=== PATIENT | female | born 1965 | race Caucasian/White ===

== ENCOUNTER 2020-01-14 07:14 | Outpatient (REF) | payer OTHER, SELFPAY ==
[2020-01-14 11:39] LABS: Alanine Aminotransferase 56 U/L (0-31); Albumin Level 4.6 g/dL (3.5-5.0); Alkaline Phosphatase 82 U/L (39-117); Anion Gap 17 (12-20); Aspartate Amino Transferase 34 U/L (5-31); Bilirubin Total 1.3 mg/dL (0.0-1.0); Blood Urea Nitrogen 13 mg/dL (9-16); Calcium 9.5 mg/dL (8.4-10.2); Carbon Dioxide 29 mmol/L (22-29); Chloride 98 mmol/L (96-108); Cholesterol 187 mg/dL; Estimated Glomerular Filt Rate > 60; Glucose Fasting 108 mg/dL (60-99); HDL Cholesterol 61 mg/dL; LDL Cholesterol Calculated 101 mg/dl; Potassium 3.9 mmol/l (3.3-5.1); Sodium 140 mmol/L (135-145); Total Protein 7.4 g/dL (6.5-8.0); Triglycerides 125 mg/dL
[2020-01-14 11:57] LABS: Vitamin D 25-OH Total 34.7 ng/mL (>30)
[2020-01-14 12:02] LABS: TSH reflex Free T4 3.17 mIU/mL (0.32-4.0)
== END 2020-01-14 07:15 | disposition home or self-care (01) ==
LOC: HO.HMGCLDS 07:14
PROVIDERS: PCP Nurse Practitioner Family; Visit Provider Nurse Practitioner Family
DX: Z13.1 Encounter for screening for diabetes mellitus (principal); Z13.220 Encounter for screening for lipoid disorders; Z13.21 Encounter for screening for nutritional disorder; Z13.29 Encounter for screening for other suspected endocrine disorder
CPT/HCPCS: 80053; 80061; 82306; 84443

== ENCOUNTER 2020-01-21 12:46 | Outpatient (REF) | payer OTHER, SELFPAY ==
--- NOTE | 2020-01-21 12:55 | US_ITS ---
EXAMINATION: US ABDOMEN COMPLETE CLINICAL INFORMATION: Abnormal levels of other serum enzymes. Elevated liver function tests. COMPARISON: None TECHNIQUE: Real-time imaging of the abdominal viscera. FINDINGS: PANCREAS: Normal. ABDOMINAL AORTA: The proximal, mid, and distal segments are normal in caliber. INFERIOR VENA CAVA: Visualized portions are normal. LIVER: Liver echotexture is increased probably representing fatty infiltration. The liver contour is normal. No focal hepatic lesion. There is no intrahepatic biliary duct dilatation seen. GALLBLADDER: The gallbladder is normal in size. There are small layering gallstones seen dependently in the gallbladder. Gallbladder wall is normal. There is no pericholecystic fluid. COMMON BILE DUCT: Normal in caliber measuring 0.4 cm in diameter. RIGHT KIDNEY: Normal. No hydronephrosis. No renal calculi or focal parenchymal lesions. The kidney measures 9.9 cm in maximum dimension. LEFT KIDNEY: Normal. No hydronephrosis. No renal calculi or focal parenchymal lesions. The kidney measures 10.0 cm in maximum dimension. SPLEEN: Normal. The spleen measures 7.4 cm in maximum dimension. FREE FLUID: None. US/US abdomen complete IMPRESSION: Echogenic liver probably representing fatty infiltration. Gallstones.
[2020-01-24 03:46] LABS: HBc Num1 0.16 S/CO (0.00-0.79); HBsAGNum1 0.18 S/CO (0.00-0.99); Hepatitis B Core Antibody Nonreactive (Nonreactive); Hepatitis B Surface Antigen Negative (Negative)
[2020-01-24 03:49] LABS: HBS Num1 0.46 mIU/mL (0-7.99); ~HepC Num1 0.05 S/CO (0.00-0.79); ~Hepatitis B Surface Antibody NONREACTIVE (Nonreactive); ~Hepatitis C Antibody Nonreactive (Nonreactive)
[2020-01-26 09:20] LABS: Hepatitis A Antibody IgM 0.29 Index (0-0.79); ~Hepatitis A Antibody IgM Nonreactive (Nonreactive)
== END 2020-01-21 12:47 | disposition home or self-care (01) ==
LOC: HO.HMGCX 12:46
PROVIDERS: PCP Nurse Practitioner Family; Visit Provider Nurse Practitioner Family
DX: R74.8 Abnormal levels of other serum enzymes (principal)
CPT/HCPCS: 76700; 86704; 86706; 86709; 86803; 87340

== ENCOUNTER 2021-01-15 06:08 | Outpatient (REF) | payer OTHER, SELFPAY ==
[2021-01-15 11:45] LABS: MANUAL DIFF FLAG NO
[2021-01-15 11:48] LABS: Basophils Absolute Auto 0.1 X10*3/uL (0.0-0.2); Eosinophils Absolute Auto 0.3 X10*3/uL (0.0-0.4); Hematocrit 47.5 % (37.0-47.0); Hemoglobin 15.7 g/dl (12.0-16.0); Imm Gran Abs Auto 0.02 X10*3/uL (0.00-0.03); Imm Gran Pct Auto 0.3 % (0.0-0.4); Lymphocytes Absolute Auto 3.2 X10*3/uL (1.2-4.9); Lymphocytes Percent Auto 43.6 % (20-40); Mean Corpuscular HGB Conc 33.1 g/dl (31.0-35.0); Mean Corpuscular Hemoglobin 29.5 pg (27.0-33.0); Mean Corpuscular Volume 89.3 fL (80.0-98.0); Mean Platelet Volume 9.5 fL (9.4-12.3); Monocytes Absolute Auto 0.6 X10*3/uL (0.1-1.2); Monocytes Percent Auto 7.6 % (2-11); Neutrophils Absolute Auto 3.2 x10*3/uL (2.0-8.3); Neutrophils Percent Auto 43.5 % (45-73); Platelet Count 352 X10*3/uL (160-400); Red Blood Count 5.32 X10*6/uL (4.20-5.50); Red Cell Distribution Width 13.3 % (11.0-16.0); White Blood Count 7.3 X10*3/uL (4.8-10.8)
[2021-01-15 12:06] LABS: Estimated Average Glucose 123 mg/dL; Hemoglobin A1c % 5.9 %
[2021-01-15 12:21] LABS: Alanine Aminotransferase 39 U/L (0-31); Albumin Level 4.6 g/dL (3.5-5.0); Alkaline Phosphatase 86 U/L (39-117); Anion Gap 17 (12-20); Aspartate Amino Transferase 32 U/L (5-31); Bilirubin Total 1.1 mg/dL (0.0-1.0); Blood Urea Nitrogen 12 mg/dL (9-16); C Reactive Protein 0.31 mg/dL (< or = 0.50); Calcium 9.7 mg/dL (8.4-10.2); Carbon Dioxide 27 mmol/L (22-29); Chloride 101 mmol/L (96-108); Cholesterol 183 mg/dL; Estimated Glomerular Filt Rate > 60; Glucose Random 101 mg/dL (60-115); HDL Cholesterol 60 mg/dL; LDL Cholesterol Calculated 102 mg/dl; Potassium 3.8 mmol/L (3.3-5.1); Sodium 141 mmol/L (135-145); Total Protein 7.4 g/dL (6.5-8.0); Triglycerides 109 mg/dL
[2021-01-15 12:26] LABS: Insulin 12 uU/mL (2-29); Thyroid Stimulating Hormone 2.93 uIU/mL (0.32-4.0); Vitamin D 25-OH Total 46.4 ng/mL (>30)
== END 2021-01-15 06:09 | disposition home or self-care (01) ==
LOC: HO.HMGCLDS 06:08
PROVIDERS: PCP Registered Nurse; Visit Provider Registered Nurse
DX: I10 Essential (primary) hypertension (principal); E03.9 Hypothyroidism, unspecified; E55.9 Vitamin D deficiency, unspecified; R63.5 Abnormal weight gain
CPT/HCPCS: 36415; 80053; 80061; 82306; 83036; 83525; 84443; 85025; 86140

== ENCOUNTER 2022-01-25 09:35 | Outpatient (REF) | payer OTHER, SELFPAY ==
--- NOTE | ~2022-01-25 | XR_ITS ---
EXAMINATION: XR CHEST CLINICAL INFORMATION: Viral infection COMPARISON: None TECHNIQUE: 2 views of the chest were obtained. FINDINGS: No significant abnormality is noted involving the heart, lungs, mediastinum, bony thorax or soft tissues. XR/XR chest 2V IMPRESSION: No acute disease.
[2022-01-25 12:56] LABS: Influenza A PCR NEGATIVE (Negative); Influenza B PCR NEGATIVE (Negative); Resp Syncy Virus RNA Qual PCR POSITIVE (Negative); SARS COV2 PCR INHOUSE NEGATIVE (Negative)
== END 2022-01-25 09:36 | disposition home or self-care (01) ==
LOC: HO.HMGCX 09:35
PROVIDERS: Visit Provider Physician Assistant
DX: Z20.822 Contact with and (suspected) exposure to COVID-19 (principal); B34.9 Viral infection, unspecified
CPT/HCPCS: 0241U; 71046

== ENCOUNTER 2023-06-24 08:53 | Outpatient (AMB) | payer OTHER, SELFPAY ==
--- NOTE | 2023-06-24 09:01 | A.OFFPC_ITS ---
Vital Signs 06/24/23 09:13 06/24/23 09:19 Height 5 ft 2 in Weight 195 lb 2 oz BMI 35.7 BP 166/78 H 158/84 H Blood Pressure Location Lt brachial Lt brachial Position Sitting Sitting Respiration 16 Pulse 113 H Pulse Source Pulse Oximeter Temp 98.5 F Temp Source Oral Pulse Oximetry (%) 98 Oxygen Delivery Method Room Air Intake Visit Reasons: Est Care Intake Note: New patient visit. PT referral for sacroiliac pain. Refill for Lorazepam sent to local pharmacy. Wine Master Required: No Allergies amoxicillin [From AUGMENTIN] Allergy (Severe, Verified 06/24/23 09:06) DIARRHEA clavulanic acid [From AUGMENTIN] Allergy (Severe, Verified 01/25/22 09:12) DIARRHEA Medication List - Last Reconciled 06/24/23 by Bhakti Pacekr PA-C amlodipine 5 mg PO DAILY cetirizine (All Day Allergy (cetirizine)) 10 mg PO DAILY PRN hydrochlorothiazide 25 mg PO DAILY lorazepam 0.5 mg PO BID Tobacco use date assessed: 06/24/23 Dental Screening Dental Screen Date: 06/24/23 Did you have a dental visit in the last 12 months?: Yes Did you have a dental problem in the last 6 months where you did not have access to dental care?: No Was dental information given to patient?: Patient has dentist HPI Est Care HPI Details Patient is a 58-year-old female who presents today to establish care. She is transferring from [facility]. She has a significant pmhx of anxiety, htn, ruptured brain aneurysm. CV: Blood pressure today in the office is 158/84. She states in doctor's offices it gets elevated. At home they are about 120/80. She has a notebook of readings today. She is on hydrochlorothiazide 25 mg, amlodipine 5 mg daily. Cholesterol is diet controlled. Last LDL was normal she believes. Denies any chest pain, shortness on breath or palpitations. She recently lost 15 lbs with diet and exercise. She started seeing a health motor coach tour operator. Neuro: She has a hx of a ruptured brain aneurysm. She follows with Dr. Christine. She states her last MRI to check on the stent was 06/10/23 and not due back for 5 years. Psych: Reports being on lorazepam 1 mg prin. She states that her anxiety is usually triggered by flying, doctor's visits, and dentist visits. She states it can be triggered sometimes by a work stressor. Normally gets 1 rx a year prn panic attacks and otherwise feels that she is able to manage anxiety. Musculoskeletal: States that she mostly made this appointment because she wants a referral to physical therapy for left hip and knee pain. She states that this all started pre pandemic and then when the pandemic happened she was only able to go to PT a couple times. She says that it feels more muscular and that she needs to work on stretching. When she stretches the pain gets better and she states most of the pain is on the outside portion of her hip in on her left medial thigh and at times tugs on the anterior aspect of her left knee. No joint instability. No trauma. Denies any back pain. She says that the knee pain she thinks it is happening because she compensates for how she walks at time because of the hip. She has not want any imaging or to see ortho. The couple times she sought PT she felt like she was getting better. They offered PT at her work. Mammogram: December 2023 follows at [facility] [place] Pap: UTD, follows with ZOILA and was last seen in May 2023, still gets infrequent menses- perimenopasual Colonoscopy: last done in 2014- due in 2024- done at [facility] [place] She works at [employer]. 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 Current occupational exposures/hazards: No Cognitive needs: No Hearing needs: No Vision needs: Yes (glasses) Questionnaire Thrive Questionnaire Date Thrive assessed: 06/24/23 I am a: Patient What is your living situation today?: I have a steady place to live Within the past 12 months, did the food you bought not last and you didn't have the money to get more?: Never true Within the past 12 months, did you worry whether your food would run out before you got money to buy more?: Never true Do you have trouble paying for medicines?: No Do you have trouble getting transportation to medical appointments?: No Do you have trouble paying your heating and electricity bill?: No Do you have trouble taking care of your child, family member or friend?: No Do you have trouble with day-to-day activities such as bathing, preparing meals, shopping, managing finances, etc.?: No Are you currently unemployed and looking for a job?: No Are you interested in more education?: No Please select the resources that you would like help with: None Currently or been in a relationship where the following occur: no concerns reported THRIVE Score: 0 AUDIT C Alcohol Use Questionnaire (AUDIT-C) 1. How often do you have a drink containing alcohol?: Monthly or less 2. How many drinks containing alcohol do you have on a typical day when you are drinking?: 1 or 2 3. How often do you have six or more drinks on one occasion?: Never Total Score: 1 Score Reviewed/Action Taken: Yes ALYSA-7 AMB Questionnaire ALYSA-7 Date ALYSA - 7 assessed: 06/24/23 Feeling nervous, anxious, or on edge: 1 = Several days Not being able to stop or control worryin = Several days Worrying too much about different things: 1 = Several days Trouble relaxin = Several days Being so restless that it is hard to sit still: 0 = Not at all Becoming easily annoyed or irritable: 0 = Not at all Feeling afraid as if something awful might happen: 0 = Not at all Total ALYSA-7 score (0-4 normal; 5-9 mild; 10-14 moderate; 15-21 severe): 4 Source: Developed by Drs. Pedro Marcelo, Marisela Millan, Arnold Rowe and colleagues, with an educational sina from [employer] ALYSA-7 Assessment Billing ALYSA-7 Assessment Tool: ALYSA-7 Assessment 40072 Physical exam (Primary Care) Vital Signs: Last Vital Signs Temp 98.5 F 06/24/23 09:13 Pulse 113 H 06/24/23 09:13 Resp 16 06/24/23 09:13 BP 158/84 H 06/24/23 09:19 Pulse Ox 98 06/24/23 09:13 Oxygen Delivery Method Room Air 06/24/23 09:13 BMI result Body Mass Index 35.7 BMI Assessment/Plan discussion: High (She is following with a health motor coach tour operator.) BMI High, discussed plan: lifestyle, weight reduction and physical activity Tobacco/Smoking Status: Tobacco use Status Tobacco use date assessed 06/24/23 06/24/23 09:17 Patient Tobacco Use Status Never used Tobacco 06/24/23 09:02 e-Cigarette/Vaping Use Never Used 06/24/23 09:17 Thrive Assessment: Date of Thrive Assessment Date Thrive assessed 06/24/23 06/24/23 09:17 Currently or been in a relationship where the following occur: no concerns reported Const Orientation/consciousness: patient oriented x3 HENMT Ears: hearing grossly normal bilaterally Neck Thyroid: Thyroid normal Lymphatic: no lymphadenopathy noted Resp Auscultation: clear to auscultation bilaterally Cardio Rate: regular rate Rhythm: regular rhythm Heart sounds: S1 normal heart sound present and S2 normal heart sound present GI Inspection: Yes normal to inspection Palpation (GI): Soft to palpation and Other GI palpation findings present (nontender, no cva tenderness) Auscultation: normoactive bowel sounds Rectal Exam - Female: deferred Back/Spine/Pelvis Cervical Spine: cervical ROM normal Thoracic/Lumbar Spine: thoracic and lumbar spine normal to inspection, thoraco- lumbar ROM normal and straight leg raise negative bilaterally Skin General skin exam: no rashes or lesions noted Neuro General: patient oriented x3, gait normal and no focal motor deficits Extrem Other: There is tenderness to palpation of the left lateral hip. Internal and external rotation does elicit some discomfort of the hip. Full range of motion. There is tenderness to palpation over the anterior aspect of the left knee. Full range of motion. No ligamentous laxity noted. Negative anterior posterior drawer test. Assessment and Plan Assessment & Plan (1) Encounter to establish care: Code(s): Z76.89 - Persons encountering health services in other specified circumstances Plan: Health maintenance reviewed. Advised to obtain records. Labs ordered. Code(s): M25.562 - Pain in left knee Plan: Referral to PT. Code(s): M25.552 - Pain in left hip; G89.29 - Other chronic pain Plan: See above Code(s): I10 - Essential (primary) hypertension Plan: BP elevated today in office. At home readings are generally normal. I will have her follow up in 3 months. She is currently working on diet and weight loss. She will follow up with her readings and her cuff. She will follow up sooner if anything changes. Refill medications today. (5) Generalized anxiety disorder with panic attacks: Code(s): F41.1 - Generalized anxiety disorder; F41.0 - Panic disorder [episodic paroxysmal anxiety] Plan: One Rx for lorazepam was refilled today. Mass pat reviewed. Plan Labs ordered today. Follow up pending test results. Follow up for a CPE. Patient understands and agrees with the plan. Orders: Orders Complete Blood Count Auto Diff Today I10 - Essential (primary) hypertension Comprehensive [place]. Panel Fast Today I10 - Essential (primary) hypertension PT Evaluation and Treatment Today G89.29 - Other chronic pain, M25.552 - Pain in left hip, M25.562 - Pain in left knee Lipid Panel Today I10 - Essential (primary) hypertension TSH reflex Free T4 Today I10 - Essential (primary) hypertension Medications: New lorazepam 0.5 mg (1/2 x 1 mg) PO BID 30 days PRN 30 tabs 0RF anxiety amlodipine 5 mg PO DAILY 90 tabs 3RF Coding Level of Care Code New Pt Level 4 (76343) Complex EM visit Add On G2211 Diagnoses Encounter to establish care Z76.89 Benign hypertension M25.562 Generalized anxiety disorder with panic attacks M25.552; G89.29 Chronic left hip pain I10 Additional Codes ALYSA-7 Assessment Billing - ALYSA-7 Assessment Tool: ALYSA-7 Assessment [id number] ([id number])
[2023-06-24 09:13] VITALS: BP 166/78; PULSE 113; RESP 16; TEMP 36.9; O2SAT 98; BMI 35.7
[2023-06-24 09:19] VITALS: BP 158/84
== END 2023-06-24 10:05 | disposition home or self-care (01) ==
PROVIDERS: PCP Registered Nurse; Visit Provider Physician Assistant
DX: F41.1 Generalized anxiety disorder (principal); F41.0 Panic disorder [episodic paroxysmal anxiety]; Z76.89 Persons encountering health services in other specified circumstances; M25.562 Pain in left knee; M25.552 Pain in left hip; G89.29 Other chronic pain; I10 Essential (primary) hypertension
CPT/HCPCS: 96127; 99204; G2211

== ENCOUNTER 2023-08-11 10:21 | Outpatient (REF) | payer OTHER, SELFPAY ==
[2023-08-11 13:42] LABS: MANUAL DIFF FLAG NO
[2023-08-11 13:51] LABS: Basophils Absolute Auto 0.1 X10*3/uL (0.0-0.2); Eosinophils Absolute Auto 0.2 X10*3/uL (0.0-0.4); Eosinophils Percent Auto 2.5 % (0-4); Hematocrit 44.8 % (37.0-47.0); Imm Gran Abs Auto 0.02 X10*3/uL (0.00-0.03); Imm Gran Pct Auto 0.3 % (0.0-0.4); Lymphocytes Percent Auto 38.9 % (20-40); Mean Corpuscular HGB Conc 33.5 g/dl (31.0-35.0); Mean Corpuscular Hemoglobin 29.1 pg (27.0-33.0); Mean Platelet Volume 9.6 fL (9.4-12.3); Monocytes Absolute Auto 0.6 X10*3/uL (0.1-1.2); Monocytes Percent Auto 8.2 % (2-11); Neutrophils Absolute Auto 3.8 x10*3/uL (2.0-8.3); Neutrophils Percent Auto 49.1 % (45-73); Platelet Count 313 X10*3/uL (160-400); Red Blood Count 5.15 X10*6/uL (4.20-5.50); Red Cell Distribution Width 13.7 % (11.0-16.0); White Blood Count 7.7 X10*3/uL (4.8-10.8)
[2023-08-11 14:26] LABS: Alanine Aminotransferase 30 U/L (0-31); Albumin Level 4.6 g/dL (3.5-5.0); Alkaline Phosphatase 78 U/L (39-117); Anion Gap 13 (12-20); Aspartate Amino Transferase 26 U/L (5-31); Bilirubin Total 0.7 mg/dL (0.0-1.0); Blood Urea Nitrogen 11 mg/dL (9-16); Calcium 10.1 mg/dL (8.4-10.2); Carbon Dioxide 28 mmol/L (22-29); Chloride 102 mmol/L (96-108); Cholesterol 198 mg/dL (<200); Estimated Glomerular Filt Rate > 60; Glucose Fasting 96 mg/dL (60-99); HDL Cholesterol 74 mg/dL (>40); LDL Cholesterol Calculated 109 mg/dL (<100); Potassium 3.9 mmol/L (3.3-5.1); Sodium 139 mmol/L (135-145); Total Protein 7.7 g/dL (6.5-8.0); Triglycerides 79 mg/dL (<150)
== END 2023-08-11 10:22 | disposition home or self-care (01) ==
LOC: HO.HMGCLDS 10:21
PROVIDERS: PCP Physician Assistant; Visit Provider Physician Assistant
DX: I10 Essential (primary) hypertension (principal)
CPT/HCPCS: 36415; 80053; 80061; 84443; 85025

== ENCOUNTER 2023-09-25 07:38 | Outpatient (AMB) | payer OTHER, SELFPAY ==
--- NOTE | 2023-09-25 08:01 | A.OFFPC_ITS ---
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 She has a significant pmhx of anxiety, htn, ruptured brain aneurysm. CV: Blood pressure today in the office is 138/82. She states in doctor's offices it gets elevated. At home they are about 120/80. She has a notebook of readings today. She is on hydrochlorothiazide 25 mg, amlodipine 5 mg daily. Cholesterol is diet controlled. Last LDL was 109. Denies any chest pain, shortness on breath or palpitations. She recently lost 15 lbs with diet and exercise. She started seeing a health field hockey coach. Neuro: She has a hx of a ruptured brain aneurysm. She follows with Dr. Christine. She states her last MRI to check on the stent was 06/10/23 and not due back for 5 years. Psych: Reports being on lorazepam 1 mg prn. She states that her anxiety is usually triggered by flying, doctor's visits, and dentist visits. She states it can be triggered sometimes by a work stressor. Normally gets 1 rx a year prn panic attacks and otherwise feels that she is able to manage anxiety. Musculoskeletal: At our last visit we addressed the left hip and knee pain and she started PT for this which she states has been very helpful. Mammogram: December 2023 follows at [facility] [place] Pap: UTD, follows with ZOILA and was last seen in May 2023, still gets infrequent menses- perimenopasual Colonoscopy: last done in 2014- due in 2024- done at [facility] [place] [place] She works at [employer]. 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 1. Little interest or pleasure in doing things: not at all 2. Feeling down, depressed, or hopeless: not at all 3. Trouble falling or staying asleep, or sleeping too much: not at all 4. Feeling tired or having little energy: not at all 5. Poor appetite or overeating: not at all 6. Feeling bad about yourself - or that you are a failure or have let yourself or your family down: not at all 7. Trouble concentrating on things, such as reading the newspaper or watching television: not at all 8. Moving or speaking so slowly that other people could have noticed. Or the opposite - being so fidgety or restless that you have been moving around a lot more than usual: not at all 9. Thoughts that you would be better off or of hurting yourself in some way: not at all Total score: 0 Depression Screening Interpretation: Negative Depression Screening Done: Yes 80758 - PHQ-9 Billing: Yes Source: Developed by Drs. Pedro Marcelo, Marisela Millan, Arnold Rowe and colleagues, with an educational sina from [employer]. Thrive Questionnaire Date Thrive assessed: 06/24/23 ALYSA-7 AMB Questionnaire ALYSA-7 Date ALYSA - 7 assessed: 09/25/23 Feeling nervous, anxious, or on edge: 1 = Several days Not being able to stop or control worryin = Not at all Worrying too much about different things: 0 = Not at all Trouble relaxin = Not at all Being so restless that it is hard to sit still: 0 = Not at all Becoming easily annoyed or irritable: 1 = Several days Feeling afraid as if something awful might happen: 0 = Not at all Total ALYSA-7 score (0-4 normal; 5-9 mild; 10-14 moderate; 15-21 severe): 2 Source: Developed by Drs. Pedro Marcelo, Marisela Millan, Arnold Rowe and colleagues, with an educational sina from [employer]. ALYSA-7 Assessment Billing ALYSA-7 Assessment Tool: ALYSA-7 Assessment 12367 Physical exam (Primary Care) Tobacco/Smoking Status: Tobacco use Status Tobacco use date assessed 06/24/23 06/24/23 09:17 Patient Tobacco Use Status Never used Tobacco 06/24/23 09:02 e-Cigarette/Vaping Use Never Used 06/24/23 09:17 Depression Screening Interpretation: Negative Thrive Assessment: Date of Thrive Assessment Date Thrive assessed 06/24/23 06/24/23 09:17 Const Orientation/consciousness: patient oriented x3 HENMT Ears: hearing grossly normal bilaterally and TM's normal bilaterally General nose exam: No nasal polyps present Face and sinus: Yes sinuses nontender Mouth: Normal oral and palatal mucosa present Eyes Pupils: Equal, round and reactive pupils present EOM: EOMs intact bilaterally Neck Neck: Yes full ROM and Yes no lymphadenopathy Thyroid: Thyroid normal Chest Chest palpation & inspection: normal inspection of the chest Resp Auscultation: clear to auscultation bilaterally Cardio Rate: regular rate Rhythm: regular rhythm Heart sounds: S1 normal heart sound present and S2 normal heart sound present Peripheral pulses: Peripheral pulses 2+ throughout GI Other: Soft, nontender Auscultation: normal bowel sounds Rectal Exam - Female: deferred General: Yes no CVA tenderness Back/Spine/Pelvis Other: Nontender Back: no CVA tenderness Skin General skin exam: no rashes or lesions noted Neuro General: patient oriented x3, gait normal, CN's II-XI intact bilaterally and deep tendon reflexes 2+ bilaterally Cranial nerves: Yes Equal, round and reactive pupils present Motor exam (neuro): 5/5 motor strength present throughout Sensory Exam: double simultaneous stimulation for sensation normal Coordination: [id number] test normal and Romberg test negative Extrem General: Yes normal to inspection and Yes full ROM Psych Affect: normal affect Attitude: cooperative Thought process: Normal thought process present Thought content: Normal thought content present Insight: Good insight present (Psych) Judgement: Good judgement present (Psych) Results Reviewed Results Reviewed: Laboratory Tests 08/11/23 10:52 WBC 7.7 RBC 5.15 Hgb 15.0 Hct 44.8 Plt Count 313 Sodium 139 Potassium 3.9 Chloride 102 Carbon Dioxide 28 Anion Gap 13 BUN 11 Creatinine 0.84 Estimated GFR > 60 Fasting Glucose 96 Calcium 10.1 Total Bilirubin 0.7 AST 26 ALT 30 Alkaline Phosphatase 78 Total Protein 7.7 Albumin 4.6 Triglycerides 79 Cholesterol 198 LDL Cholesterol, Calc 109 H HDL Cholesterol 74 TSH 1.80 Assessment and Plan Assessment & Plan (1) Routine general medical examination at a health care facility: Code(s): Z00.00 - Encounter for general adult medical examination without abnormal findings Plan: reviewed labs reviewed (2) HTN (hypertension), benign: Code(s): I10 - Essential (primary) hypertension Plan: Blood pressure WNL. Readings at home are normal. We will continue current regimen. (3) Chronic left hip pain: Code(s): M25.552 - Pain in left hip; G89.29 - Other chronic pain Plan: significantly improved (4) Generalized anxiety disorder with panic attacks: Code(s): F41.1 - Generalized anxiety disorder; F41.0 - Panic disorder [episodic paroxysmal anxiety] Plan: stable Coding Level of Care Code Est Pt Prev Care 40-64y(33434) Diagnoses Routine general medical examination at a health care facility Z00.00 HTN (hypertension), benign I10 Chronic left hip pain M25.552; G89.29 Generalized anxiety disorder with panic attacks F41.1; F41.0 Additional Codes ALYSA-7 Assessment Billing - ALYSA-7 Assessment Tool: ALYSA-7 Assessment 87381 ([id number])
[2023-09-25 08:10] VITALS: BP 138/82; PULSE 98; RESP 16; O2SAT 99; BMI 35.9
== END 2023-09-25 08:46 | disposition home or self-care (01) ==
PROVIDERS: PCP Registered Nurse; Visit Provider Physician Assistant
DX: Z00.00 Encounter for general adult medical examination without abnormal findings (principal); I10 Essential (primary) hypertension; M25.552 Pain in left hip; G89.29 Other chronic pain; F41.1 Generalized anxiety disorder; F41.0 Panic disorder [episodic paroxysmal anxiety]
CPT/HCPCS: 99396

== ENCOUNTER 2023-11-26 08:03 | Outpatient (REF) | payer OTHER, SELFPAY | END 2023-11-26 08:04 | disposition home or self-care (01) | LOC: HO.LAB 08:03 | PROVIDERS: PCP Physician Assistant; Visit Provider Physician Assistant | DX: Z13.89 Encounter for screening for other disorder (principal) ==

== ENCOUNTER 2023-11-26 08:03 | Outpatient (AMB) | payer OTHER, SELFPAY ==
--- NOTE | 2023-11-26 08:11 | AM.OFFWIN_ITS ---
Intake Vital Signs 11/26/23 08:12 11/26/23 08:47 Height 5 ft 2 in Weight 197 lb BMI 36.0 BP 120/82 Blood Pressure Location Lt brachial Position Sitting Pulse 133 H 130 H Pulse Source Pulse Oximeter Pulse Oximeter Temp 99.5 F Temp Source Oral Pulse Oximetry (%) 95 96 Oxygen Delivery Method Room Air Room Air Intake Visit Reasons: EP Fever, sinus pain, vomiting Intake Note: Patient here for fever, sinus pain, vomiting, cough which started friday. Patient Tobacco Use Status: Never used Tobacco Allergies amoxicillin [From AUGMENTIN] Allergy (Severe, Verified 11/26/23 08:18) DIARRHEA clavulanic acid [From AUGMENTIN] Allergy (Severe, Verified 11/26/23 08:18) DIARRHEA Do you need a note to return to daycare/school/sports/work: No HPI HPI Comments History of Present Illness Details Patient is a 58-year-old female complaining of 2 days of fevers and chills with a T-max of 101.2 degrees F, sinus pain, a dry cough with 1 episode of vomiting this morning secondary to her cough. She denies any shortness of breath, leg pain, ear pain, recent surgeries, long plane rides or long periods of being sedentary or a personal history of a DVT or PE. She states she has been eating and drinking as best she can she tells me everyone in her house has been sick she has the last 1 to get sick. Everyone has been diagnosed with a different illnesses. She did just get her flu and COVID vaccines on November 12. She tells me she has a history of sinus infections. Patient states that her fever does come down with Tylenol. 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 Current occupational exposures/hazards: No Cognitive needs: No Hearing needs: No Vision needs: Yes (glasses) Review of Systems Const All systems reviewed & are unremarkable except as noted in HPI and below Physical Exam Vital Signs: Last Vital Signs Temp 99.5 F 11/26/23 08:12 Pulse 133 H 11/26/23 08:12 BP 120/82 11/26/23 08:12 Pulse Ox 95 11/26/23 08:12 Oxygen Delivery Method Room Air 11/26/23 08:12 BMI result Body Mass Index 36.0 Const General: cooperative, healthy appearing, comfortable and no acute distress Orientation/consciousness: patient oriented x3 Limitations: no limitations HEENT Head: Yes normal to inspection Ears: hearing grossly normal bilaterally, external ears normal and TM's normal bilaterally General nose exam: Normal external nose present, Normal nares present and No nasal discharge present Face and sinus: Yes normal facial exam and Yes sinuses nontender Mouth: Normal oral and palatal mucosa present and moist mucous membranes Throat: Yes tonsils normal, Yes uvula midline and Yes posterior oropharynx abnormal (Erythema) Eyes General: appearance normal, both eyes and all related structures Neck Neck: Yes normal visual inspection Resp Effort & Inspection: normal respiratory effort, able to speak in complete sentences, Actively coughing, no respiratory distress, not tachypneic, no tripod positioning and no use of accessory muscles Auscultation: clear to auscultation bilaterally Cardio Rate: tachycardic Rhythm: regular rhythm Heart sounds: normal S1 and S2 Skin General skin exam: no rashes or lesions noted Neuro General: patient oriented x3 Extrem General: Yes normal to inspection and Yes no clubbing, cyanosis or edema Assessment & Plan Assessment & Plan (1) Tachycardia: Code(s): R00.0 - Tachycardia, unspecified Plan: Tachycardic into the 130s however very regular, she has no so history of any arrhythmias. Her tachycardia is likely due to her fever (not currently febrile) however Wells score is 1.5 low risk, will get a d dimer. Discussed with patient what this is and what the test results mean. Did tell her there is a small chance it could be positive and she would have to go to the ER to get a CTA and that could be negative. I am anticipating the D-dimer to be negative but if it is positive, she knows she has to go to the emergency department for a CTA to rule out a PE. (2) URI (upper respiratory infection): Code(s): J06.9 - Acute upper respiratory infection, unspecified Qualifiers: URI type: unspecified URI Qualified Code(s): J06.9 - Acute upper respir atory infection, unspecified Plan: Sent flu COVID and RSV, also sent codeine cough syrup so patient can use at night. Recommended using [id number] medications to treat her symptoms. Plan See above Orders: Orders D Dimer High Sensitivity Today R00.0 - Tachycardia, unspecified SARS-CoV2/FLU/RSV Today J06.9 - Acute upper respiratory infection, unspecified Medications: New codeine-guaifenesin 10-100 mg/5 mL 10 mL PO Q4-6H 120 mL 0RF cold symptoms Coding Level of Care Code Est Pt Level 4 (50153) Diagnoses Tachycardia R00.0 Upper respiratory tract infection, unspecified type J06.9 URI type: unspecified URI
[2023-11-26 08:12] VITALS: BP 120/82; PULSE 133; TEMP 37.5; O2SAT 95; BMI 36.0
[2023-11-26 08:47] VITALS: PULSE 130; O2SAT 96
== END 2023-11-26 08:49 | disposition home or self-care (01) ==
PROVIDERS: PCP Physician Assistant; Visit Provider Physician Assistant
DX: R00.0 Tachycardia, unspecified (principal); J06.9 Acute upper respiratory infection, unspecified

== ENCOUNTER 2023-11-26 08:41 | Outpatient (REF) | payer OTHER, SELFPAY ==
[2023-11-26 11:03] LABS: Influenza A PCR NEGATIVE (Negative); Influenza B PCR NEGATIVE (Negative); Resp Syncy Virus RNA Qual PCR NEGATIVE (Negative); SARS COV2 PCR INHOUSE NEGATIVE (Negative)
[2023-11-26 11:08] LABS: D Dimer High Sensitivity 317 NG/ML
== END 2023-11-26 08:42 | disposition home or self-care (01) ==
LOC: HO.HMGCLDS 08:41
PROVIDERS: PCP Physician Assistant; Visit Provider Physician Assistant
DX: R00.0 Tachycardia, unspecified (principal); J06.9 Acute upper respiratory infection, unspecified
CPT/HCPCS: 0241U; 36415; 85379

== ENCOUNTER 2023-11-26 15:18 | Outpatient (REF) | payer OTHER, SELFPAY ==
--- NOTE | ~2023-11-26 | CT_ITS ---
EXAMINATION: CT ANGIOGRAM CHEST CLINICAL INFORMATION: Tachycardia, unspecified COMPARISON: Chest radiograph 01/25/2022 TECHNIQUE: Multiple axial images were obtained through the chest after the administration of 70 mL of Omnipaque 350 intravenous contrast. Extensive vascular post-processing including two-dimensional and three-dimensional reformatted images were created and reviewed on an independent workstation. This CT examination was performed using dose optimization techniques as appropriate, variously including the following: *Automated exposure control *Adjustment of mA and/or kV according to patient size (this includes techniques or standardized protocols for targeted exams where dose is matched to indication/reason for exam; i.e. extremities or head) *Use of iterative reconstruction technique DLP: 113 mGy-cm FINDINGS: QUALITY OF STUDY/CONTRAST BOLUS: Satisfactory. PULMONARY ARTERIES: No central or segmental pulmonary emboli. THORACIC AORTA: No aneurysm or dissection. LUNG: Central airways are patent. Right lower lobe dense consolidation with air bronchograms. No suspicious pulmonary nodule. No pleural effusion or pneumothorax. MEDIASTINUM: Normal heart size. No pericardial effusion. No hilar or mediastinal lymphadenopathy. No evidence of septal bowing or right heart strain. CHEST WALL/AXILLA: No axillary or internal mammary lymphadenopathy. VISUALIZED ABDOMEN: Unremarkable. No reflux of contrast into the hepatic veins to suggest right heart strain. OSSEOUS STRUCTURES: Unremarkable. CT/CT angio chest PE protocol IMPRESSION: 1. No pulmonary embolism. 2. Right lower lobe dense consolidation with air bronchograms may represent pneumonia. Follow-up chest CT upon resolution of symptoms is recommended to assess for resolution of this finding. Fleischner guidelines were followed. Electronically signed by: Sharmin Nicole DO 11/26/2023 06:18 PM EDT
[2023-11-26] MEDS: iohexoL 350 MG/ML 100 ML INFUS..BTL 70 ML IV (15:59)
[2023-11-27 06:14] LABS: Creatinine POC 0.9 mg/dL (0.5-1.4); GFR POC > 60
== END 2023-11-26 15:19 | disposition home or self-care (01) ==
LOC: HO.CT 15:18
PROVIDERS: PCP Physician Assistant; Visit Provider Physician Assistant
DX: R00.0 Tachycardia, unspecified (principal); R06.09 Other forms of dyspnea; R79.89 Other specified abnormal findings of blood chemistry
CPT/HCPCS: 71275; 82565; Q9967

== ENCOUNTER 2023-12-03 11:02 | Outpatient (AMB) | payer OTHER, SELFPAY ==
--- NOTE | 2023-12-03 11:10 | A.OFFPC_ITS ---
Vital Signs 12/03/23 11:13 Height 5 ft 2 in Weight 199 lb 4 oz BMI 36.4 BP 134/64 Blood Pressure Location Lt brachial Position Sitting Pulse 113 H Pulse Source Pulse Oximeter Pulse Oximetry (%) 99 Oxygen Delivery Method Room Air Intake Visit Reasons: Follow up pneumonia Intake Note: Follow up pneumonia Internal Medicine Hospitalist Required: No Allergies amoxicillin [From AUGMENTIN] Allergy (Severe, Verified 12/03/23 11:13) DIARRHEA clavulanic acid [From AUGMENTIN] Allergy (Severe, Verified 12/03/23 11:13) DIARRHEA Medication List - Last Reconciled 12/03/23 by Bhakti Packer PA-C amlodipine 5 mg PO DAILY cetirizine (All Day Allergy (cetirizine)) 10 mg PO DAILY PRN codeine-guaifenesin 10-100 mg/5 mL 10 mL PO Q4-6H doxycycline hyclate 100 mg PO BID hydrochlorothiazide 25 mg PO DAILY lorazepam 0.5 mg (1/2 x 1 mg) PO BID PRN 30 days Tobacco use date assessed: 06/24/23 Dental Screening Dental Screen Date: 06/24/23 HPI Follow up pneumonia HPI Details Patient is a 58-year-old female who presents today for a follow up. She was seen recently in urgent care on 11/25 and diagnosed with a viral URI and tachycardia. She had COVID and RSV testing which were negative. She ultimately had an elevated D-dimer and had a CTA that was ordered by myself per request of urgent care. Her CTA did reveal pneumonia. I started her on doxycycline. She tells me today that she is feeling a lot better. She is coughing less in the fever subsided over the weekend. She does not want to have a repeat CT because she has a high deductible plan. She is somewhat frustrated that she even had a CTA because of the quijano of this test. CV: Blood pressure today in the office is 134/64. 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 Mother Depression Anxiety Other FH: mental illness Social History Housing: House Patient Tobacco Use Status: Never used Tobacco e-Cigarette/Vaping Use: Never Used Second Hand Smoke Exposure: Yes service: No Current occupational status: employed Current occupation: [employer] former Current occupational exposures/hazards: No Cognitive needs: No Hearing needs: No Vision needs: Yes (glasses) Questionnaire Thrive Questionnaire Date Thrive assessed: 06/24/23 I am a: Patient What is your living situation today?: I have a steady place to live Within the past 12 months, did the food you bought not last and you didn't have the money to get more?: I choose not to answer this question Within the past 12 months, did you worry whether your food would run out before you got money to buy more?: I choose not to answer this question Do you have trouble paying for medicines?: I choose not to answer this question Do you have trouble getting transportation to medical appointments?: I choose not to answer this question Do you have trouble paying your heating and electricity bill?: I choose not to answer this question Do you have trouble taking care of your child, family member or friend?: I choose not to answer this question Do you have trouble with day-to-day activities such as bathing, preparing meals, shopping, managing finances, etc.?: I choose not to answer this question Are you currently unemployed and looking for a job?: I choose not to answer this question Are you interested in more education?: I choose not to answer this question Please select the resources that you would like help with: None Currently or been in a relationship where the following occur: I choose not to answer THRIVE Score: 0 AUDIT C Alcohol Use Questionnaire (AUDIT-C) 1. How often do you have a drink containing alcohol?: Never Total Score: 0 ALYSA-7 AMB Questionnaire ALYSA-7 Date ALYSA - 7 assessed: 09/25/23 Feeling nervous, anxious, or on edge: 0 = Not at all Not being able to stop or control worryin = Not at all Worrying too much about different things: 0 = Not at all Trouble relaxin = Not at all Being so restless that it is hard to sit still: 0 = Not at all Becoming easily annoyed or irritable: 0 = Not at all Feeling afraid as if something awful might happen: 0 = Not at all Total ALYSA-7 score (0-4 normal; 5-9 mild; 10-14 moderate; 15-21 severe): 0 Source: Developed by Drs. Pedro Marcelo, Marisela Millan, Arnold Rowe and colleagues, with an educational sina from [employer]. Physical exam (Primary Care) Tobacco/Smoking Status: Tobacco use Status Tobacco use date assessed 06/24/23 12/03/23 11:12 Patient Tobacco Use Status Never used Tobacco 12/03/23 11:12 e-Cigarette/Vaping Use Never Used 12/03/23 11:12 Thrive Assessment: Date of Thrive Assessment Date Thrive assessed 06/24/23 12/03/23 11:12 Currently or been in a relationship where the following occur: I choose not to answer Const Orientation/consciousness: patient oriented x3 HENMT Ears: hearing grossly normal bilaterally and TM's normal bilaterally General nose exam: Normal nasal mucous membranes and turbinates present Face and sinus: Yes sinus tenderness (Maxillary, mild) Throat: Yes posterior oropharynx normal Neck Thyroid: Thyroid normal Lymphatic: no lymphadenopathy noted Resp Auscultation: wheezes scattered wheezes and right lower Cardio Rate: regular rate Rhythm: regular rhythm Heart sounds: S1 normal heart sound present and S2 normal heart sound present Skin General skin exam: no rashes or lesions noted Neuro General: patient oriented x3, gait normal and no focal motor deficits Results Reviewed Results Reviewed: Laboratory Tests 11/26/23 11/26/23 11/26/23 08:06 08:45 15:45 D-Dimer High Sensitivty 317 POC Creatinine 0.9 POC GFR > 60 Influenza Type A (PCR) NEGATIVE Influenza Type B (PCR) NEGATIVE RSV RNA Qual (PCR) NEGATIVE SARS-CoV-2 RNA (RT-PCR) NEGATIVE FINDINGS: QUALITY OF STUDY/CONTRAST BOLUS: Satisfactory. PULMONARY ARTERIES: No central or segmental pulmonary emboli. THORACIC AORTA: No aneurysm or dissection. LUNG: Central airways are patent. Right lower lobe dense consolidation with air bronchograms. No suspicious pulmonary nodule. No pleural effusion or pneumothorax. MEDIASTINUM: Normal heart size. No pericardial effusion. No hilar or mediastinal lymphadenopathy. No evidence of septal bowing or right heart strain. CHEST WALL/AXILLA: No axillary or internal mammary lymphadenopathy. VISUALIZED ABDOMEN: Unremarkable. No reflux of contrast into the hepatic veins to suggest right heart strain. OSSEOUS STRUCTURES: Unremarkable. CT/CT angio chest PE protocol IMPRESSION: 1. No pulmonary embolism. 2. Right lower lobe dense consolidation with air bronchograms may represent pneumonia. Follow-up chest CT upon resolution of symptoms is recommended to assess for resolution of this finding. Coding Level of Care Code Est Pt Level 4 (24505) Complex EM visit Add On G2211 Diagnoses RLL pneumonia J18.9 HTN (hypertension), benign I10 Assessment & Plan Assessment & Plan (1) RLL pneumonia: Code(s): J18.9 - Pneumonia, unspecified organism Category: Medical Plan: Repeat chest x-ray in 4-6 weeks. We did discuss that the CT scan does recommend a repeat CT but she does not want to pay for this. (2) HTN (hypertension), benign: Code(s): I10 - Essential (primary) hypertension Category: Medical Plan: WNL. Continue current regimen. Advised patient to follow up in 3 months. Sooner if needed. Orders: Orders XR chest 2V Today J18.9 - Pneumonia, unspecified organism Medications: New hydrochlorothiazide 25 mg PO DAILY 90 tabs 3RF Discontinued amoxicillin Discontinued Reason: Doctor's Order 875 mg PO BID 10 days 20 tabs 0RF
[2023-12-03 11:13] VITALS: BP 134/64; PULSE 113; O2SAT 99; BMI 36.4
== END 2023-12-03 16:36 | disposition home or self-care (01) ==
PROVIDERS: PCP Physician Assistant; Visit Provider Physician Assistant
DX: J18.9 Pneumonia, unspecified organism (principal); I10 Essential (primary) hypertension

== ENCOUNTER → 2023-12-03 11:02 | Outpatient (BNVA) | payer OTHER, SELFPAY | PROVIDERS: PCP Physician Assistant; Visit Provider Physician Assistant ==

== ENCOUNTER 2024-01-07 08:23 | Outpatient (REF) | payer OTHER, SELFPAY ==
--- NOTE | ~2024-01-07 | XR_ITS ---
EXAMINATION: XR CHEST CLINICAL INFORMATION: Pneumonia, unspecified organism J18.9. COMPARISON: XR Chest 01/25/2022, CT chest 11/26/2023 TECHNIQUE: 2 views of the chest were obtained. FINDINGS: The cardiomediastinal silhouette is normal. Improved aeration in the right lower lobe when compared with the recent CT scan. No pleural effusion or pneumothorax. No acute osseous abnormalities. XR/XR chest 2V IMPRESSION: Improved aeration in the right lower lobe. No acute cardiopulmonary process. Electronically signed by: Pedro Gomez MD 02/03/2024 10:17 AM GORDY
== END 2024-01-07 08:24 | disposition home or self-care (01) ==
LOC: HO.HMGCX 08:23
PROVIDERS: PCP Physician Assistant; Visit Provider Physician Assistant
DX: J18.9 Pneumonia, unspecified organism (principal)
CPT/HCPCS: 71046

== ENCOUNTER 2024-06-23 12:40 | Outpatient (AMB) | payer OTHER, SELFPAY ==
--- NOTE | 2024-06-23 13:01 | A.OFFPC_ITS ---
Vital Signs 06/23/24 13:04 06/23/24 13:07 Height 5 ft 2 in Weight 199 lb 4 oz BMI 36.4 BP 150/82 H 158/82 H Blood Pressure Location Lt brachial Lt brachial Position Sitting Sitting Respiration 16 Pulse 118 H Pulse Source Pulse Oximeter Pulse Oximetry (%) 100 Oxygen Delivery Method Room Air Intake Visit Reasons: BP medication Intake Note: Blood pressure follow up Medical Transcription Radiology Required: No Allergies amoxicillin [From AUGMENTIN] Allergy (Severe, Verified 06/23/24 13:02) DIARRHEA clavulanic acid [From AUGMENTIN] Allergy (Severe, Verified 06/23/24 13:02) DIARRHEA Medication List - Last Reconciled 06/23/24 by Bhakti Packer PA-C amlodipine 5 mg PO DAILY cholecalciferol (vitamin D3) 250 mcg PO DAILY hydrochlorothiazide 25 mg PO DAILY loratadine (Claritin) 10 mg PO DAILY lorazepam 0.5 mg (1/2 x 1 mg) PO BID PRN 30 days Tobacco use date assessed: 06/23/24 Dental Screening Dental Screen Date: 06/23/24 Did you have a dental visit in the last 12 months?: Yes Did you have a dental problem in the last 6 months where you did not have access to dental care?: No Was dental information given to patient?: Patient has dentist HPI BP medication HPI Details Patient is a 59-year-old female who presents today for a follow up. CV: Blood pressure today in the office is 158/82. She is on hydrochlorothiazide and amlodipine 5 mg. No chest pain or shortness on breath. She has noticed that her blood pressures at home are a bit elevated Psych: She states that she thinks her blood pressure is elevated because she has had a bit more anxiety. She has a lot of stress particularly over the things that she can not control such as the current political issues happening in the country and world wide issues. She states that it is to the point where she can not watch the news. She states that she has anxiety every day. Denies any SI/HI. Denies significant depression. States that it is mostly just this anxiety feeling. 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 Current occupational exposures/hazards: No Cognitive needs: No Hearing needs: No Vision needs: Yes (glasses) Questionnaire Thrive Questionnaire Date Thrive assessed: 06/21/24 I am a: Patient What is your living situation today?: I have a steady place to live Within the past 12 months, did the food you bought not last and you didn't have the money to get more?: I choose not to answer this question Within the past 12 months, did you worry whether your food would run out before you got money to buy more?: I choose not to answer this question Do you have trouble paying for medicines?: I choose not to answer this question Do you have trouble getting transportation to medical appointments?: I choose not to answer this question Do you have trouble paying your heating and electricity bill?: I choose not to answer this question Do you have trouble taking care of your child, family member or friend?: I choose not to answer this question Do you have trouble with day-to-day activities such as bathing, preparing meals, shopping, managing finances, etc.?: I choose not to answer this question Are you currently unemployed and looking for a job?: I choose not to answer this question Are you interested in more education?: I choose not to answer this question Please select the resources that you would like help with: None Currently or been in a relationship where the following occur: No concerns reported THRIVE Score: 0 AUDIT C Alcohol Use Questionnaire (AUDIT-C) 1. How often do you have a drink containing alcohol?: Never 3. How often do you have six or more drinks on one occasion?: Never Total Score: 0 ALYSA-7 AMB Questionnaire ALYSA-7 Date ALYSA - 7 assessed: 09/25/23 Feeling nervous, anxious, or on edge: 1 = Several days Not being able to stop or control worryin = Not at all Worrying too much about different things: 0 = Not at all Trouble relaxin = Not at all Being so restless that it is hard to sit still: 0 = Not at all Becoming easily annoyed or irritable: 0 = Not at all Feeling afraid as if something awful might happen: 0 = Not at all Total ALYSA-7 score (0-4 normal; 5-9 mild; 10-14 moderate; 15-21 severe): 1 Source: Developed by Drs. Pedro Marcelo, Marisela Millan, Arnold Rowe and colleagues, with an educational sina from [employer]. Physical exam (Primary Care) Vital Signs: Last Vital Signs Pulse 118 H 06/23/24 13:04 Resp 16 06/23/24 13:04 BP 158/82 H 06/23/24 13:07 Pulse Ox 100 06/23/24 13:04 Oxygen Delivery Method Room Air 06/23/24 13:04 BMI result Body Mass Index 36.4 Tobacco/Smoking Status: Tobacco use Status Tobacco use date assessed 06/23/24 06/23/24 13:07 Patient Tobacco Use Status Never used Tobacco 06/23/24 13:07 e-Cigarette/Vaping Use Never Used 06/23/24 13:07 Thrive Assessment: Date of Thrive Assessment Date Thrive assessed 06/21/24 06/23/24 13:07 Currently or been in a relationship where the following occur: No concerns reported Const Orientation/consciousness: patient oriented x3 HENMT Ears: hearing grossly normal bilaterally Neck Thyroid: Thyroid normal Lymphatic: no lymphadenopathy noted Resp Auscultation: clear to auscultation bilaterally Cardio Rate: regular rate Rhythm: regular rhythm Heart sounds: S1 normal heart sound present and S2 normal heart sound present GI Inspection: Yes normal to inspection Palpation (GI): Soft to palpation and Other GI palpation findings present (nontender, no cva tenderness) Auscultation: normoactive bowel sounds Rectal Exam - Female: deferred Skin General skin exam: no rashes or lesions noted Neuro General: patient oriented x3, gait normal and no focal motor deficits Coding Level of Care Code Est Pt Level 4 (54682) Complex EM visit Add On G2211 Diagnoses HTN (hypertension), benign I10 Generalized anxiety disorder with panic attacks F41.1; F41.0 Assessment & Plan Assessment & Plan (1) HTN (hypertension), benign: Code(s): I10 - Essential (primary) hypertension Category: Medical Plan: increase amlodipine to 10 mg continue hctz 25 mg (2) Generalized anxiety disorder with panic attacks: Code(s): F41.1 - Generalized anxiety disorder; F41.0 - Panic disorder [episodic paroxys mal anxiety] Category: Medical Plan: We will start Lexapro. Discussed risks and benefits and adverse effects of this medication. Short term follow up in a month to be reassessed. Sooner if needed. Orders: Orders Lipid Panel Today F41.0 - Panic disorder [episodic paroxysmal anxiety], F41.1 - Generalized anxiety disorder, I10 - Essential (primary) hypertension, R74.8 - Abnormal levels of other serum enzymes Microalbumin, Random (w Creat) Today F41.0 - Panic disorder [episodic paroxysmal anxiety], F41.1 - Generalized anxiety disorder, I10 - Essential (primary) hypertension, R74.8 - Abnormal levels of other serum enzymes UA CC w/rflx Micro + Cult Today F41.0 - Panic disorder [episodic paroxysmal anxiety], F41.1 - Generalized anxiety disorder, I10 - Essential (primary) hypertension, R74.8 - Abnormal levels of other serum enzymes, Z13.220 - Encounter for screening for lipoid disorders Complete Blood Count Auto Diff Today F41.0 - Panic disorder [episodic paroxysmal anxiety], F41.1 - Generalized anxiety disorder, I10 - Essential (primary) hypertension, R74.8 - Abnormal levels of other serum enzymes Comprehensive [place]. Panel Fast Today F41.0 - Panic disorder [episodic paroxysmal anxiety], F41.1 - Generalized anxiety disorder, I10 - Essential (primary) hypertension, R74.8 - Abnormal levels of other serum enzymes TSH reflex Free T4 Today F41.0 - Panic disorder [episodic paroxysmal anxiety], F41.1 - Generalized anxiety disorder, I10 - Essential (primary) hypertension, R74.8 - Abnormal levels of other serum enzymes Referrals Gastroenterology Referral Z12.11 - Encounter for screening for malignant neoplasm of colon Medications: New amlodipine 10 mg PO DAILY 90 tabs 0RF escitalopram oxalate (Lexapro) 5 mg PO DAILY 90 tabs 0RF Discontinued amlodipine Discontinued Reason: Doctor's Order 5 mg PO DAILY 90 tabs 3RF
--- OUTSIDE RECORDS SUMMARY | 2024-06-23 13:01 | XMS_ITS | Patient Health Record ---
Author Organization [facility] Address [address] [place] [address] Care Team Providers Care Internal Controls Manager Name Role Phone Maye Julian Primary Care Provider Unavailab Christiansen Jannette Unavailable [phone] Allergies Allergen (clinical drug ingredient) Drug/Non Drug Allergy documented on EMR Reaction Allergy Type Onset Date Status amoxicillin / clavulanate Augmentin severe diarrhea Drug Allergy Active Reason For Referral No Information Medications Medication SIG (Take, Route, Frequency, Duration) Notes Start Date End Date Status Multivitamin Adult - as directed Orally Unknown hydroCHLOROthiazide 25 MG (Prior Auth: R x Ref#:[id number]) Oral for 90 Active amLODIPine Besylate 5 MG 1 tablet Orally Once a day Active Aspirin 325 MG 1 tablet Orally Once a day for 30 day(s) Unknown LORazepam 1 MG (Schedule IV Drug) ( Prior Auth: Rx Ref#:[id number]) Oral for 15 PRN Active Multivitamin Active Azithromycin 250 MG (Prior Auth: Rx Ref#:[id number]) Oral for 5 Unknown Social History Tobacco Use: Social History Observation Description Date Details (start date - stop date) Never Smoker NA - NA Tobacco Use/Smoking Question Answer Notes Are you a: nonsmoker Additional Findings: Tobacco Non-User Current no n-smoker Alcohol Screen Question Answer Notes Did you have a drink containing alcohol in the p ast year? No Points 0 Interpretation Negative Tobacco use other than smoking: Question Answer Notes Are you an other tobacco user? No Problems Problem Type SNOMED Code ICD Code Onset Dates Problem Status W/U Status Risk Notes Problem Acquired hallux valgus (85826237) Hallux valgus (acquired), right foot (M20.11) Active confirmed Problem Osteoarthritis o f right ankle and foot (M19.071) Active confirmed Plan Of Treatment No Information Insurance Providers Payer Name Payer Address Payer Phone Subscriber Number Group Number Insured Name Patient Relationship to Insured Coverage Start Date Coverage End Date [employer] [address] [place] [phone] [id number] Terrie Tang Self - patient is the insured Medical (General) History Medical History History ICD Code Headaches/Migraines High blood pressure Chicken pox Aneurysm - July 2012 Cataracts Anxiety chronic sinusitis Surgical History Surgery Date(Month/Year) aneurysm repair, coil and stent 07/2012
[2024-06-23 13:04] VITALS: BP 150/82; PULSE 118; RESP 16; O2SAT 100; BMI 36.4
[2024-06-23 13:07] VITALS: BP 158/82
== END 2024-06-23 13:35 | disposition home or self-care (01) ==
LOC: HO.HMCFM 12:41
PROVIDERS: PCP Physician Assistant; Visit Provider Physician Assistant
DX: I10 Essential (primary) hypertension (principal); F41.1 Generalized anxiety disorder; F41.0 Panic disorder [episodic paroxysmal anxiety]

== ENCOUNTER → 2024-06-23 12:40 | Outpatient (BNVA) | payer OTHER, SELFPAY | PROVIDERS: PCP Physician Assistant; Visit Provider Physician Assistant ==

== ENCOUNTER 2024-09-25 08:13 | Outpatient (REF) | payer OTHER, SELFPAY ==
[2024-09-25 11:29] LABS: MANUAL DIFF FLAG NO
[2024-09-25 11:31] LABS: Appearance Urine Clear; Glucose Urine UA Negative (Negative); PH 6.5 (5.0-9.0); Specific Gravity - Urine 1.020 (1.005-1.025); UMIC TRIGGER UACC YES
[2024-09-25 11:32] LABS: Hematocrit 42.4 % (37.0-47.0); Hemoglobin 14.6 g/dl (12.0-16.0); Imm Gran Abs Auto 0.02 X10*3/uL (0.00-0.03); Imm Gran Pct Auto 0.3 % (0.0-0.4); Lymphocytes Absolute Auto 3.0 X10*3/uL (1.2-4.9); Mean Corpuscular HGB Conc 34.4 g/dl (31.0-35.0); Mean Corpuscular Hemoglobin 29.3 pg (27.0-33.0); Mean Corpuscular Volume 85.0 fL (80.0-98.0); NRBC Abs Auto 0.000 X10*3/uL (0.0-0.012); NRBC Pct Auto 0.0 /100WBC (0.0-0.2); Platelet Count 317 X10*3/uL (160-400); Red Blood Count 4.99 X10*6/uL (4.20-5.50); White Blood Count 6.5 X10*3/uL (4.8-10.8)
[2024-09-25 11:37] LABS: UACC Culture Trigger YES
[2024-09-25 11:48] LABS: Alanine Aminotransferase 34 U/L (0-31); Albumin Level 4.6 g/dL (3.5-5.0); Alkaline Phosphatase 82 U/L (39-117); Anion Gap 14 (12-20); Aspartate Amino Transferase 35 U/L (5-31); Blood Urea Nitrogen 13 mg/dL (9-16); Calcium 9.2 mg/dL (8.4-10.2); Carbon Dioxide 27 mmol/L (22-29); Chloride 102 mmol/L (96-108); Cholesterol 183 mg/dL (<200); Estimated Glomerular Filt Rate > 60; HDL Cholesterol 61 mg/dL (>40); Potassium 3.2 mmol/L (3.3-5.1); Sodium 140 mmol/L (135-145); Total Protein 7.0 g/dL (6.5-8.0); Triglycerides 92 mg/dL (<150)
[2024-09-25 11:54] LABS: Microalbum/Creatinine Ratio Ur 9.3 ug/mg cr (<30)
== END 2024-09-25 08:14 | disposition home or self-care (01) ==
LOC: HO.HMGCLDS 08:13
PROVIDERS: PCP Physician Assistant; Visit Provider Physician Assistant
DX: F41.1 Generalized anxiety disorder (principal); F41.0 Panic disorder [episodic paroxysmal anxiety]; I10 Essential (primary) hypertension; R74.8 Abnormal levels of other serum enzymes
CPT/HCPCS: 36415; 80053; 80061; 81001; 82043; 82570; 84443; 85025; 87086

== ENCOUNTER 2024-09-30 07:46 | Outpatient (AMB) | payer OTHER, SELFPAY ==
--- OUTSIDE RECORDS SUMMARY | 2024-09-30 07:50 | XMS_ITS | Patient Health Record ---
Author Organization [facility] Address [address] [place] [address] Care Team Providers Care Bark Tanner Name Role Phone Sandeep Mendez MD Primary Care Provider Pedro Castro [phone] Allergies Allergen (clinical drug ingredient) Drug/Non Drug Allergy documented on EMR Reaction Allergy Type Onset Date Status amoxicillin / clavulanate Augmentin Unknown Drug Allergy Active Reason For Referral No Information Medications Medication SIG (Take, Route, Fr equency, Duration) Notes Start Date End Date Status Aspirin 324 MG 1 tablet Orally Once a day Active hydroCHLOROthiazide Active Suprep Bowel Prep 1 kit as directed Oral ly as directed for 1 dose 11/02/2014 Active Lorazepam prn Active Problems Problem Type SNOMED Code ICD Code Onset Dates Problem Status W/U Status Risk Notes Problem Pre-surgery evaluation (710660704) Other specified pre-operative examination (V72.83) Active confirmed Problem Already on aspirin (997819973) Long-term (current) use of aspirin (V58.66) Active confirmed Problem Colon cancer screening (V76.51) Active confirmed Plan Of Treatment Future Test Test Name Order Date COLONOSCOPY 11/01/2014 Next Appt Details Provider Name:Pedro Eller , 10/14/2024 10:00:00 AM, [address], [address], [place], [address], Insurance Providers Payer Name Payer Address Payer Phone Subscriber Number Group Number Insured Name Patient Relationship to Insured Coverage Start Date Coverage End Date [employer] [address] [place], [place] [address] [id number] [id number] Self - patient is the insured Medical (General) History Medical History History ICD Code Denies [place],DM,CVA,Lung disease,renal dise ase hypertension Cerebral aneurysm in 2012 at was treated by angiography with a coil and stent placement--she had a followup angiogram in July of 2014 which she reports looked fine in regard to the previous aneurysm and stent Surgical History Surgery Date(Month/Year)
--- OUTSIDE RECORDS SUMMARY | 2024-09-30 07:50 | XMS_ITS | Patient Health Record ---
Author Organization [facility] Address [address] [place] [address] Care Team Providers Care Education Trainer Name Role Phone Maye Julian Primary Care Provider UnavailJonathan Steinmie Unavailable [phone] Allergies Allergen (clinical drug ingredient) Drug/Non Drug Allergy documented on EMR Reaction Allergy Type Onset Date Status amoxicillin / clavulanate Augmentin severe diarrhea Drug Allergy Active Reason For Referral No Information Medications Medication SIG (Take, Route, Frequency, Duration) Notes Start Date End Date Status Multivitamin Adult - as directed Orally Unknown hydroCHLOROthiazide 25 MG (Prior Auth: R x Ref#:[id number]) Oral; Duration: 90 Active amLODIPine Besylate 5 MG 1 tablet Orally Once a day Active Aspirin 325 MG 1 tablet Orally Once a day; Duration: 30 day(s) Unknown LORazepam 1 MG (Schedule IV Drug) ( Prior Auth: Rx Ref#:[id number]) Oral; Duration: 15 PRN Active Multivitamin Active Azithromycin 250 MG (Prior Auth: Rx Ref#:[id number]) Oral; Duration: 5 Unknown Social History Tobacco Use: Social [...] Status Risk Notes Problem Acquired hallux valgus (25776309) Hallux valgus (acquired), right foot (M20.11) Active confirmed Problem Osteoarthritis o f right ankle and foot (M19.071) Active confirmed Plan Of Treatment Next Appt Details Provider Name:Jannette Delacruz , 11/08/2024 08:00:00 AM, [address] [place] [address], [phone], Insurance Providers Payer Name Payer Address Payer Phone Subscriber Number Group Number Insured Name Patient Relationship to Insured Coverage Start Date Coverage End Date [facility] [address] [place] [address] [id number] Terrie Tang Self - patient is the insured Medical (General) History Medical History History ICD Code Headaches/Migraines High blood pressure Chicken pox Aneurysm - July 2012 Cataracts Anxiety chronic sinusitis Surgical History Surgery Date(Month/Year) aneurysm repair, coil and stent 07/2012
--- NOTE | 2024-09-30 07:59 | MHC.PC.OV ---
Vital Signs 09/30/24 08:00 09/30/24 08:12 Height 5 ft 2 in Weight 201 lb 4 oz BMI 36.8 BP 158/76 H 148/78 H Blood Pressure Location Lt brachial Lt brachial Position Sitting Sitting Respiration 14 Pulse 91 Pulse Source Pulse Oximeter Temp 98.7 F Temp Source Oral Pulse Oximetry (%) 97 Oxygen Delivery Method Room Air Intake Visit Reasons: Annual Physical Intake Note: Physical Nuclear Equipment Sales Engineer Required: No Allergies amoxicillin (From AUGMENTIN) Allergy (Severe, Verified 09/30/24 08:02) DIARRHEA clavulanic acid (From AUGMENTIN) Allergy (Severe, Verified 09/30/24 08:02) DIARRHEA Medication List - Last Reconciled 09/30/24 by Bhakti Packer PA-C amlodipine 10 mg PO DAILY cholecalciferol (vitamin D3) 250 mcg PO DAILY escitalopram oxalate (Lexapro) 5 mg PO DAILY hydrochlorothiazide 25 mg PO DAILY loratadine (Claritin) 10 mg PO DAILY lorazepam 0.5 mg (1/2 x 1 mg) PO BID PRN 30 days Tobacco use date assessed: 09/30/24 Dental Screening Dental Screen Date: 06/23/24 HPI Annual Physical HPI Details Patient is a 59-year-old female who presents today for a physical exam. -States she went on vacation before this appointment and getting blood work. She states dietary indiscretions that she normally would not eat. CV: Blood pressure today in the office is 158/76. She is on hydrochlorothiazide 25 mg and amlodipine 10 mg. No chest pain or shortness on breath. She has noticed that her blood pressures at home are a bit elevated Psych: She was recently started on Lexapro. She feels that this is effective. She has a lot of stress particularly over the things that she can not control such as the current political issues happening in the country and world wide issues. She states that it is to the point where she can not watch the news. Denies any SI/HI. Denies significant depression GI: She does have a history of fatty liver and recently her LFTs came back a little bit elevated. She states that she believes it was likely lifestyle induced on vacation. 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 Current occupational exposures/hazards: No Cognitive needs: No Hearing needs: No Vision needs: Yes (glasses) Questionnaire Thrive Questionnaire Date Thrive assessed: 06/21/24 I am a: Patient What is your living situation today?: I have a steady place to live Within the past 12 months, did the food you bought not last and you didn't have the money to get more?: I choose not to answer this question Within the past 12 months, did you worry whether your food would run out before you got money to buy more?: I choose not to answer this question Do you have trouble paying for medicines?: I choose not to answer this question Do you have trouble getting transportation to medical appointments?: I choose not to answer this question Do you have trouble paying your heating and electricity bill?: I choose not to answer this question Do you have trouble taking care of your child, family member or friend?: I choose not to answer this question Do you have trouble with day-to-day activities such as bathing, preparing meals, shopping, managing finances, etc.?: I choose not to answer this question Are you currently unemployed and looking for a job?: I choose not to answer this question Are you interested in more education?: I choose not to answer this question Please select the resources that you would like help with: None Currently or been in a relationship where the following occur: No concerns reported THRIVE Score: 0 AUDIT C Alcohol Use Questionnaire (AUDIT-C) 1. How often do you have a drink containing alcohol?: Monthly or less 2. How many drinks containing alcohol do you have on a typical day when you are drinking?: 1 or 2 3. How often do you have six or more drinks on one occasion?: Never Total Score: 1 ALYSA-7 AMB Questionnaire ALYSA-7 Date ALYSA - 7 assessed: 09/25/23 Source: Developed by Drs. Pedro Marcelo, Marisela Millan, Arnold Rowe and colleagues, with an educational sina from [employer]. Physical exam (Primary Care) Vital Signs: Last Vital Signs Temp 98.7 F 09/30/24 08:00 Pulse 91 09/30/24 08:00 Resp 14 09/30/24 08:00 BP 158/76 H 09/30/24 08:00 Pulse Ox 97 09/30/24 08:00 Oxygen Delivery Method Room Air 09/30/24 08:00 BMI result Body Mass Index 36.8 Tobacco/Smoking Status: Tobacco use Status Tobacco use date assessed 06/23/24 06/23/24 13:07 Patient Tobacco Use Status Never used Tobacco 06/23/24 13:07 e-Cigarette/Vaping Use Never Used 06/23/24 13:07 Thrive Assessment: Date of Thrive Assessment Date Thrive assessed 06/21/24 09/25/24 16:07 Currently or been in a relationship where the following occur: No concerns reported Const Orientation/consciousness: patient oriented x3 HENMT Ears: hearing grossly normal bilaterally and TM's normal bilaterally General nose exam: No nasal polyps present Face and sinus: Yes sinuses nontender Mouth: Normal oral and palatal mucosa present Eyes Pupils: Equal, round and reactive pupils present EOM: EOMs intact bilaterally Neck Neck: Yes full ROM and Yes no lymphadenopathy Thyroid: Thyroid normal Chest Chest palpation & inspection: normal inspection of the chest Resp Auscultation: clear to auscultation bilaterally Cardio Rate: regular rate Rhythm: regular rhythm Heart sounds: S1 normal heart sound present and S2 normal heart sound present Peripheral pulses: Peripheral pulses 2+ throughout GI Other: Soft, nontender Auscultation: normal bowel sounds Rectal Exam - Female: deferred General: Yes no CVA tenderness Back/Spine/Pelvis Other: Nontender Back: no CVA tenderness Skin General skin exam: no rashes or lesions noted Neuro General: patient oriented x3, gait normal, CN's II-XI intact bilaterally and deep tendon reflexes 2+ bilaterally Cranial nerves: Yes Equal, round and reactive pupils present Motor exam (neuro): 5/5 motor strength present throughout Sensory Exam: double simultaneous stimulation for sensation normal Coordination: [id number] test normal and Romberg test negative Extrem General: Yes normal to inspection and Yes full ROM Psych Affect: normal affect Attitude: cooperative Thought process: Normal thought process present Thought content: Normal thought content present Insight: Good insight present (Psych) Judgement: Good judgement present (Psych) Results Reviewed Results Reviewed: Laboratory Tests 09/25/24 09/25/24 08:14 08:17 WBC 6.5 RBC 4.99 Hgb 14.6 Hct 42.4 Plt Count 317 Sodium 140 Potassium 3.2 L Chloride 102 Carbon Dioxide 27 Anion Gap 14 BUN 13 Creatinine 0.79 Estimated GFR > 60 Fasting Glucose 101 H Calcium 9.2 D Total Bilirubin 0.7 AST 35 H ALT 34 H Alkaline Phosphatase 82 Total Protein 7.0 Albumin 4.6 Triglycerides 92 Cholesterol 183 LDL Cholesterol, Calc 104 H HDL Cholesterol 61 TSH 2.28 Urine Protein Negative Urine Glucose (UA) Negative Urine Ketones Negative Urine Blood Negative Urine Creatinine 181.09 Urine Microalbumin 17.0 Microalb/Creat Ratio 9.3 FINDINGS: PANCREAS: Normal. ABDOMINAL AORTA: The proximal, mid, and distal segments are normal in caliber. INFERIOR VENA CAVA: Visualized portions are normal. LIVER: Liver echotexture is increased probably representing fatty infiltration. The liver contour is normal. No focal hepatic lesion. There is no intrahepatic biliary duct dilatation seen. GALLBLADDER: The gallbladder is normal in size. There are small layering gallstones seen dependently in the gallbladder. Gallbladder wall is normal. There is no pericholecystic fluid. COMMON BILE DUCT: Normal in caliber measuring 0.4 cm in diameter. RIGHT KIDNEY: Normal. No hydronephrosis. No renal calculi or focal parenchymal lesions. The kidney measures 9.9 cm in maximum dimension. LEFT KIDNEY: Normal. No hydronephrosis. No renal calculi or focal parenchymal lesions. The kidney measures 10.0 cm in maximum dimension. SPLEEN: Normal. The spleen measures 7.4 cm in maximum dimension. FREE FLUID: None. US/US abdomen complete IMPRESSION: Echogenic liver probably representing fatty infiltration. Gallstones. Coding Level of Care Code Est Pt Prev Care 40-64y(01220) Diagnoses Routine general medical examination at a health care facility Z00.00 HTN (hypertension), benign I10 Elevated liver enzymes R74.8 IFG (impaired fasting glucose) R73.01 Generalized anxiety disorder with panic attacks F41.1; F41.0 Hypokalemia E87.6 Assessment & Plan Assessment & Plan (1) Routine general medical examination at a health care facility: Code(s): Z00.00 - Encounter for general adult medical examination without abnormal findings Plan: Health maintenance reviewed Labs reviewed with patient today in office Phone number provided to GI (2) HTN (hypertension), benign: Code(s): I10 - Essential (primary) hypertension Category: Medical Plan: bp elevated today but states at home normal (111/62 this am) She will continue to monitor and let me know if anything changes (3) Elevated liver enzymes: Code(s): R74.8 - Abnormal levels of other serum enzymes Category: Medical Plan: We reviewed last labs showed elevated LFTs. States diet related we will recheck in a couple months (4) IFG (impaired fasting glucose): Code(s): R73.01 - Impaired fasting glucose Category: Medical Plan: A1c ordered (5) Generalized anxiety disorder with panic attacks: Code(s): F41.1 - Generalized anxiety disorder; F41.0 - Panic disorder [episodic paroxysmal anxiety] Category: Medical Plan: Currently well-controlled (6) Hypokalemia: Code(s): E87.6 - Hypokalemia Category: Medical Plan: will increase potassium rich foods. We will rechecked. We did discuss that she is on hydrochlorothiazide which can sometimes promote hypokalemia Orders: Orders Comprehensive Met. Panel Today E87.6 - Hypokalemia, I10 - Essential (primary) hypertension Hemoglobin A1c Today E87.6 - Hypokalemia, I10 - Essential (primary) hypertension, R73.01 - Impaired fasting glucose Referrals Dermatology Referral Z12.83 - Encounter for screening for malignant neoplasm of skin
[2024-09-30 08:00] VITALS: BP 158/76; PULSE 91; RESP 14; TEMP 37.1; O2SAT 97; BMI 36.8
[2024-09-30 08:12] VITALS: BP 148/78
== END 2024-09-30 08:37 | disposition home or self-care (01) ==
LOC: HO.HMCFM 07:47
PROVIDERS: PCP Physician Assistant; Visit Provider Physician Assistant
DX: Z00.00 Encounter for general adult medical examination without abnormal findings (principal); I10 Essential (primary) hypertension; R74.8 Abnormal levels of other serum enzymes; R73.01 Impaired fasting glucose; F41.1 Generalized anxiety disorder; F41.0 Panic disorder [episodic paroxysmal anxiety]; E87.6 Hypokalemia

== ENCOUNTER 2025-01-03 08:59 | Day surgery (SDC) | payer OTHER, SELFPAY ==
--- NOTE | 2024-12-29 14:02 | HO.ANESPROP2 ---
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 Current occupational exposures/hazards: No Cognitive needs: No Hearing needs: No Vision needs: Yes (glasses) Meds Allergies Allergy/AdvReac Type Severity Reaction Status Date / Time amoxicillin (From AUGMENTIN) Allergy Severe DIARRHEA Verified 09/30/24 08:02 clavulanic acid (From Allergy Severe DIARRHEA Verified 09/30/24 08:02 AUGMENTIN) Home Medications ?Medication ?Instructions ?Recorded ?Confirmed ?Last Taken ?Type cholecalciferol (vitamin D3) 250 250 mcg PO DAILY 06/23/24 01/03/25 Unknown History mcg (10,000 unit) capsule loratadine 10 mg tablet (Claritin) 10 mg PO DAILY PRN allergies 06/23/24 01/03/25 Unknown History amlodipine 10 mg tablet 10 mg PO BEDTIME 01/03/25 01/03/25 01/03/25 History escitalopram oxalate 5 mg tablet 5 mg PO BEDTIME 01/03/25 01/03/25 Unknown History (Lexapro) Assessment and Plan Assessment Anesthesia Assessment: Chart Reviewed Documented by User: Amandeep Barrera MD 01/03/25 10:35 PMFSH Past Medical History Medical History 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 Mother Depression Anxiety Other FH: mental illness Family history of problems with anesthesia: Yes Surgical History Surgical History History of surgery H/O colonoscopy History of Problems with Anesthesia: No Social History Social History Housing: House Alcohol intake: current Patient Tobacco Use Status: Never used Tobacco e-Cigarette/Vaping Use: Never Used Second Hand Smoke Exposure: Yes Use of substances other than those prescribed or required for medical reasons: No Are you DNR?: No Advance Directives: No Advance Directives Information Provided: Yes Patient : No : No service: No Current occupational status: employed 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 Current occupational exposures/hazards: No Cognitive needs: No Hearing needs: No Vision needs: Yes (glasses) Meds Allergies Allergy/AdvReac Type Severity Reaction Status Date / Time amoxicillin (From AUGMENTIN) Allergy Severe DIARRHEA Verified 09/30/24 08:02 clavulanic acid (From Allergy Severe DIARRHEA Verified 09/30/24 08:02 AUGMENTIN) Home Medications ?Medication ?Instructions ?Recorded ?Confirmed ?Last Taken ?Type cholecalciferol (vitamin D3) 250 250 mcg PO DAILY 06/23/24 01/03/25 Unknown History mcg (10,000 unit) capsule loratadine 10 mg tablet (Claritin) 10 mg PO DAILY PRN allergies 06/23/24 01/03/25 Unknown History amlodipine 10 mg tablet 10 mg PO BEDTIME 01/03/25 01/03/25 01/03/25 History escitalopram oxalate 5 mg tablet 5 mg PO BEDTIME 01/03/25 01/03/25 Unknown History (Lexapro) Exam Exam Date and Time: 01/03/25 Airway Mallampati Class: II TM Dist: >3cm Neck ROM: Full Loose/Missing/Broken Teeth: No Heart: normal Lungs: normal Other: normal Assessment and Plan Assessment Anesthesia Assessment: Anesthesia Plan Discussed Final Anesthetic Review Family History of Problems with Anesthesia: Yes History of Problems with Anesthesia: No NPO: Yes ASA Class: II Final Preanesthetic Review: No Changes in Pt Med Stat, Meds/Allgs Chart Reviewed, Consent Obtained/Reviewed and Anes Risks/Benef Reviewed Patient Risk: Low Procedure Risk: Low Anesthetic Plan Anesthetic Plan: MAC: Disposition: Standard PACU
[2025-01-03 09:53] VITALS: BMI 36.2
[2025-01-03 10:09] VITALS: BP 151/89; PULSE 99; RESP 16; TEMP 36.2; O2SAT 98
[2025-01-03] MEDS: Lactated Ringers 1,000 ML 100 ML IVCONT (10:23)
--- NOTE | 2025-01-03 11:51 | PM.OP ---
Brief Operative Note Date of Service: 01/03/25 Pre-op diagnosis: Screening Post-op diagnosis: other (Diverticulosis) Procedure: Colonoscopy to the cecum Surgeon: Pedro Eller MD Anesthesia: MAC Was an Industrial Therapist used for this Procedure?: No Estimated blood loss (mL): 0 Pathology: none sent Condition: stable Disposition: PACU
[2025-01-03 11:58] VITALS: BP 120/70; PULSE 99; RESP 16; TEMP 36.2; O2SAT 96
[2025-01-03 12:00] VITALS: BP 141/80; PULSE 90; RESP 16; O2SAT 97
[2025-01-03 12:15] VITALS: BP 139/67; PULSE 90; RESP 16; TEMP 36.3; O2SAT 97
--- NOTE | 2025-01-03 22:52 | OP_ITS ---
DATE OF SERVICE: 01/03/2025 SURGEON: Pedro Eller MD INDICATIONS: The patient presents for evaluation of colorectal cancer screening. Full consent was obtained from her for this, including risks of bleeding and perforation. PREOPERATIVE DIAGNOSIS: Colorectal cancer screening. POSTOPERATIVE DIAGNOSIS: Colorectal cancer screening, sigmoid diverticulosis, and internal hemorrhoids. PROCEDURE PERFORMED: Colonoscopy to cecum. ESTIMATED BLOOD LOSS: COMPLICATIONS: ANESTHESIA: Medication used, monitored anesthesia care. ASSISTANTS: SPECIMENS: DESCRIPTION OF PROCEDURE: The patient was placed in the left lateral decubitus position. The digital rectal exam revealed no abnormalities other than some small external hemorrhoids. The Olympus video pediatric colonoscope was entered into the rectum and advanced easily to the cecum. Once in the cecum, I did identify normal-appearing cecal pouch with appendiceal orifice and a normal-appearing ileocecal valve. The entire cecum and ileocecal valve appeared normal. There was transillumination of light deep in the lower quadrant. The scope was slowly withdrawn assessing all mucosal surfaces carefully. Preparation was excellent. I did not visualize any sign of polyps, colitis, nor angiodysplasia. There was a mild amount of sigmoid diverticulosis. In the rectum, scope was retroflexed visualizing internal hemorrhoids, but no other pathology. The rectal mucosa appeared normal. The scope was straightened and withdrawn out from the patient. She tolerated the procedure well and was returned to recovery area in stable condition. IMPRESSION: 1. Diverticulosis. 2. Internal hemorrhoids. PLAN: Given the negative exam and negative family history of colorectal cancer, I would recommend a repeat colonoscopy in 10 years for further screening. She will otherwise see me as needed. MD ARNULFO Mayer/ALFREDO / [id number]
== END 2025-01-03 12:48 | disposition home or self-care (01) ==
PROVIDERS: PCP Physician Assistant; Visit Provider Internal Medicine
PROC: 0DJD8ZZ Inspection of Lower Intestinal Tract, Via Natural or Artificial Opening Endoscopic (ICD-10-PCS; CPT 45378; principal; 2025-01-03 10:40)
DX: Z12.11 Encounter for screening for malignant neoplasm of colon (principal); K57.30 Diverticulosis of large intestine without perforation or abscess without bleeding; K64.8 Other hemorrhoids; I10 Essential (primary) hypertension; Z86.79 Personal history of other diseases of the circulatory system; Z95.828 Presence of other vascular implants and grafts; F41.9 Anxiety disorder, unspecified; Z79.899 Other long term (current) drug therapy; Z88.1 Allergy status to other antibiotic agents; Z98.890 Other specified postprocedural states
CPT/HCPCS: 45378; J2003; J2704; J3010